=== PATIENT | female | born 1955 | race Caucasian/White ===

== ENCOUNTER → 2021-05-19 | Day surgery (SDC) | payer OTHER ==
[~2021-05-19] VITALS: Ht 157.5 cm; Wt 97.0 kg
[~2021-05-19] MED LIST: AMLO-187 PO; CARV25TA PO; CRESTOR40 MG PO; HYDROmorphone 2 MG/ML VIAL IVP PRN; INSU100V13 SQ; IV RINGERS,LACTATED 1000ML 1,000 ML IV SCH; LEVO50TA5 PO; LOSA1TAB25 PO; METF10007 PO; MORPHINE SULFATE 2 MG/ML INJ. IVP PRN; PROCHLORPERAZINE 10 MG/2 ML VIAL. IVP PRN; PROPOFOL 10 MG/ML (20ML) VIAL. IV ONE; SEMA0.25 SQ; fentaNYL PF VIAL 100 MCG/2 ML VIAL IVP PRN
[2021-05-19 06:54] VITALS: BP 151/74
--- NOTE | 2021-05-19 07:55 | CONS ---
DATE OF CONSULTATION: 05/19/2021 GASTROENTEROLOGY CONSULTATION REFERRING PHYSICIAN: Glenis Shi MD REASON FOR CONSULTATION: Personal history of colon polyps, family history of colon cancer. HISTORY OF PRESENT ILLNESS: A 65-year-old female whose past medical history is significant for hypertension, diabetes, hypothyroidism, hyperlipidemia, seen for interval colon exam. The patient has had known colon polyps in the past. Family history is positive for colon cancer with her father, but no melena, hematochezia, diarrhea or constipation. Weight and appetite are stable. She is otherwise without additional complaints. PAST MEDICAL HISTORY: Hypertension, diabetes, hypothyroidism and hyperlipidemia. ALLERGIES: None. MEDICATIONS: Include amlodipine, Coreg, insulin, levothyroxine, losartan, hydrochlorothiazide, metformin, Crestor, and Ozempic. FAMILY HISTORY: Significant for colon cancer, diabetes and hypertension with her father. SOCIAL HISTORY: Nonsmoker and nondrinker. PAST SURGICAL HISTORY: , cholecystectomy. REVIEW OF SYSTEMS: Per records. PHYSICAL EXAMINATION: GENERAL: Reveals a well-nourished, well-developed female who is alert and cooperative, no acute distress. VITAL SIGNS: Temperature 98, pulse 82, respiratory rate 20. LUNGS: Clear. CARDIOVASCULAR: Reveals an S1, S2, without S3, S4 or appreciable murmur. ABDOMEN: Reveals a soft abdomen, normal bowel sounds without appreciable hepatosplenomegaly. IMPRESSION: Colon polyps with a family history of colon cancer. Surveillance exam is recommended at this time. Risks and benefits of procedure including risk of hemorrhage and perforation with operation were discussed. The patient is willing to proceed at this time. I thank Dr. Shi for allowing us to consult and participate in this patient's care. IKE DR: Kristi TID: [id number] CC: GLENIS SHI MD
[2021-05-19 08:35] VITALS: BP 131/64
--- NOTE | 2021-05-23 17:18 | PATHOLOGY ---
[facility] Accession Number: [id number] . 01 Material submitted: . rectum - RECTUM BX POLYP . 01 Clinical history: . CRC SCREENING COLONOSCOPY . 02 Diagnosis: Colorectal biopsies, rectal polyps: - Hyperplastic polyps. ([facility] 05/23/2021) [facility] [place] 05/23/2021 0948 Local . 02 Comment: There are no adenomatous changes or evidence of malignancy. ([facility] 05/23/2021) . 02 Electronically signed: . Kg Lopez MD, Pathologist NPI- [id number] . 01 Gross description: . The specimen is received in formalin, labeled "Keyona Fonseca, rectum polyp biopsy". Received are two segments of pale reese tissue measuring 0.4 and 0.6 cm in maximum dimensions. The specimen is submitted entirely in cassette A1. ([facility]; 05/22/2021) [facility] 05/22/2021 1022 Local . 02 Pathologist provided ICD-10: K62.1 . 02 CPT . 908185 Specimen Comment: A courtesy copy of this report has been sent to [phone], [phone] Specimen Comment: [id number] Specimen Comment: Report sent to / DR LEY Performed at: 01 [facility] [address], [place], [place] [id number] MD Julián Waggoner MD Phone: [phone] Performed at: 02 [facility] [address] [place], [place] [id number] MD Kg Lopez MD Phone: [phone]
== END | disposition home or self-care (01) ==
LOC: ENDOS 06:28
PROVIDERS: ATTEND Internal Medicine Gastroenterology
DX: Z12.11 Encounter for screening for malignant neoplasm of colon (principal); K57.30 Diverticulosis of large intestine without perforation or abscess without bleeding; K64.0 First degree hemorrhoids; K63.89 Other specified diseases of intestine; K62.1 Rectal polyp; I10 Essential (primary) hypertension; E03.9 Hypothyroidism, unspecified; E11.9 Type 2 diabetes mellitus without complications; G47.30 Sleep apnea, unspecified; Z86.010 Personal history of colon polyps; Z87.891 Personal history of nicotine dependence; Z79.84 Long term (current) use of oral hypoglycemic drugs; Z79.899 Other long term (current) drug therapy; Z98.890 Other specified postprocedural states; Z82.49 Family history of ischemic heart disease and other diseases of the circulatory system; Z80.0 Family history of malignant neoplasm of digestive organs; Z83.3 Family history of diabetes mellitus
CPT/HCPCS: 45380; J2704